=== PATIENT | male | born 1935 | race Caucasian/White ===

== ENCOUNTER 2017-01-07 08:52 | Emergency (ER) | payer MEDICARE, OTHER ==
[~2017-01-07 08:52] MED LIST: ACET500CAP PO; AGGRENOX PO; ALLEGRA180 PO; ARICEPT10 PO; ARICEPT5 PO; ASAB PO; B121000P IM; CAT1 PO; CIPRO (10%) PO; COUMADIN3 MG PO; COZ25 PO; CYANO1000T PO; DCN100 PO; DEMA100 PO; DSS PO; EZFE 200200 MG PO; FLAG500TAB PO; FLONASE NAS; HALF81 PO; IMDUR30 PO; JANTOVEN2 MG PO; JANTOVEN3 MG PO; JANTOVEN4 MG PO; K500 PO; KDUR10 PO; KLOR-CON 1010 MEQ PO; KLOR-CON M1010 MEQ PO; KLOR-CON M2020 MEQ PO; L20 PO; L40 PO; L80 PO; LIPITOR20 PO; LIPITOR40 PO; LOP50 PO; MAGOX4 PO; MULTI-VIT HP OR; MULTIPLE VIT PO; MULTIVIT/MIN PO; NEXIUM40 PO; NITROSTAT0.4 MG SL; NORV5 PO; PLAQ200B PO; PRAVAC PO; PROTONIX PO; REFRESH OPH; RESTASIS OPH; SEROQUEL25 PO; SPIRO25 PO; SUCR PO; T PO; TEARS NATURA OPH; TEARS PURE OPH; TESS PO; TOPXL50 PO; ULTRAM50 PO; VANCOCIN HCL125 MG PO; VASOTEC10 PO; VASOTEC20 MG PO; VITAMIN B SHOT; VITAMIN B-121000 MC1 SL; WELCHOL 625 MG625 MG PO; WELCHOL625 MG OR; XIFAXAN550 MG PO; Z300 PO; ZANTAC300 MG PO
== END 2017-01-07 11:07 | disposition home or self-care (01) ==
LOC: ER 08:52
DX: S51.011A Laceration without foreign body of right elbow, initial encounter (principal); S00.01XA Abrasion of scalp, initial encounter; I13.0 Hypertensive heart and chronic kidney disease with heart failure and stage 1 through stage 4 chronic kidney disease, or unspecified chronic kidney disease; I50.9 Heart failure, unspecified; N18.9 Chronic kidney disease, unspecified; Z87.891 Personal history of nicotine dependence; Z95.5 Presence of coronary angioplasty implant and graft; I48.91 Unspecified atrial fibrillation; Z86.73 Personal history of transient ischemic attack (TIA), and cerebral infarction without residual deficits; Z90.49 Acquired absence of other specified parts of digestive tract; Z88.0 Allergy status to penicillin; Z88.5 Allergy status to narcotic agent; Z79.899 Other long term (current) drug therapy; Z79.82 Long term (current) use of aspirin; W06.XXXA Fall from bed, initial encounter
CPT/HCPCS: 70450; 72125; 90471; 90714; 93005; 99285